=== PATIENT | male | born 1995 | race Caucasian/White ===

== ENCOUNTER 2022-07-17 08:23 | Emergency (ER) | payer OTHER ==
[2022-07-17] MEDS ORDERED: CYCLOBENZAPRINE 10 MG TABLET PO STA (09:03)
[2022-07-17] MEDS ORDERED: IBUPROFEN 800 MG TABLET PO STA (09:03)
[2022-07-17] MEDS ORDERED: HYDROcod/ACETAM 5/325 MG TABLET PO STA (09:03)
--- NOTE | 2022-07-17 09:13 | ED Physician Documentation ---
PD HPI BACK PAIN - Stated complaint Stated Complaint: BACK PX - Chief complaint Chief Complaint: Back Pain - History obtained from History obtained from: Patient, Family - History of Present Illness Timing - onset: How many days ago (several) Pain level max: 8 Pain level now: 8 Location: Lower, Right, Left Quality: Pain, Spasm, Similar to prior episodes Associated symptoms: No: Fever, Weakness, Numbness, Incontinent of urine, Unable to urinate, Hematuria, Incontinent of stool, Other Improves with: Rest Worsened by: Movement Contributing factors: No: Lifting, Twisting, Trauma, Anticoagulated, Cancer, IVDA - Additional information Additional information: Patient is a 26-year-old male who presents to the emergency department with several days of ongoing low back pain. Does not describe any specific injuries. Worse with movement, better with rest. No loss of bowel or bladder control. No IV drug use. No fevers. No chills. He states that he has a history of "bulging disks". Pain is nonradiating. No relief with Tylenol Review of Systems Constitutional: denies: Fever, Chills GI: denies: Vomiting, Diarrhea Skin: denies: Rash Musculoskeletal: denies: Neck pain Neurologic: denies: Headache PD PAST MEDICAL HISTORY - Past Medical History Past Medical History: Yes Cardiovascular: None Respiratory: None Neuro: None Endocrine/Autoimmune: None GI: None : None HEENT: None Psych: None Musculoskeletal: Chronic back pain Derm: None - Past Surgical History Past Surgical History: Yes HEENT: Other - Present Medications Home Medications: Ambulatory Orders Medication Instructions Recorded Confirmed Cyclobenzaprine [Flexeril] 10 mg PO TID PRN #20 tablet 07/17/22 HYDROcod/ACETAM 5/325 [Greenwood 5/325] 1 - 2 ea PO Q6H PRN #14 tablet 07/17/22 Ibuprofen [Motrin] 800 mg PO Q8H PRN #30 tablet 07/17/22 - Allergies Allergies/Adverse Reactions: Allergies Allergy/AdvReac Type Severity Reaction Status Date / Time No Known Drug Allergies Allergy Verified 07/17/22 08:34 - Social History Does the pt smoke?: No Smoking Status: Never smoker Does the pt drink ETOH?: Yes Does the pt have substance abuse?: No - Immunizations Immunizations are current?: Yes PD ED PE NORMAL - Vitals Vital signs reviewed: Yes - General General: Alert and oriented X 3, No acute distress - HEENT HEENT: PERRL, Moist mucous membranes - Neck Neck: Supple, no meningeal sign - Cardiac Cardiac: RRR, Strong equal pulses - Respiratory Respiratory: No respiratory distress, Clear bilaterally - Abdomen Abdomen: Soft, Non tender, Non distended - Back Back: No spinal TTP (No midline tenderness to palpation or percussion. No step- off or deformity.) - Derm Derm: Warm and dry - Extremities Extremities: Normal ROM s pain, No calf tenderness / cord - Neuro Neuro: Alert and oriented X 3, No motor deficit, No sensory deficit, Other (Normal bilateral lower extremity patellar and ankle jerk reflexes. Normal great toe extension bilaterally. no saddle anesthesia) - Psych Psych: Normal mood, Normal affect Results - Vitals Vitals: Vital Signs - 24 hr 07/17/22 07/17/22 08:31 09:21 Temperature 36.7 C Heart Rate 88 82 Respiratory 15 16 Rate Blood Pressure 139/81 H 134/78 H O2 Saturation 99 99 Oxygen O2 Source Room air PD Medical Decision Making - ED course Complexity details: considered differential (No cauda equina, no spinal epidural abscess, no fracture, no aortic dissection or evidence of aneursym rupture), d/w patient ED course: Patient with acute on chronic back pain. No evidence of cauda equina, epidural abscess. We will place on pain medications, muscle relaxants. We will have him follow-up with his doctor for further care. No indication for emergent neuroimaging. No focal neurological deficits. Patient counseled regarding signs and symptoms for which I believe and urgent re-evaluation would be necessary. Patient with good understanding of and agreement to plan and is comfortable going home at this time This document was made in part using voice recognition software. While efforts are made to proofread this document, sound alike and grammatical errors may occur. Departure - Departure Disposition: 01 Home, Self Care Clinical Impression: Back pain Qualifiers: Back pain location: low back pain Chronicity: acute Back pain laterality: bilateral Sciatica presence: without sciatica Qualified Code(s): M54.50 - Low back pain, unspecified Condition: Good Instructions: ED Low Back Pain Injury Follow-Up: your,doctor in 1 week [Other] Prescriptions: Cyclobenzaprine [Flexeril] 10 mg PO TID PRN #20 tablet PRN Reason: Spasms Ibuprofen [Motrin] 800 mg PO Q8H PRN #30 tablet PRN Reason: PAIN &/OR FEVER HYDROcod/ACETAM 5/325 [[place]wood 5/325] 1 - 2 ea PO Q6H PRN #14 tablet PRN Reason: Pain Comments: Please follow-up with your doctor for further care. Return if you worsen. Your prescriptions were sent to [facility] in [place]. Please continue to gently s tretch your back at home. I am prescribing a short course of narcotic pain medication for you. These are potentially dangerous and addictive medications that should be used carefully. These medications may constipate you. Take an [id number] stool softener (docusate) twice daily with plenty of water while taking these medications. If you go 24 hours without a bowel movement, take [id number] miralax, per package instructions. Do not drink or drive while taking these medications. If you received narcotic or sedating medications while in the emergency department, do not drive for 24 hours. Store this medication in a safe, secure place and out of reach of children. It is a violation of federal law to give or sell this medication to another person or to use in a manner other than prescribed. The ED will not refill narcotic prescriptions, including prescriptions lost or stolen. To dispose of unwanted medications: 1. [facility] at [address] in [place] has a medication drop box. They accept prescription medications (in pill form) Wednesday through Wednesday 9:00 a.m. to 5:00 p.m. 2. [facility], [place] [employer] accepts prescription medications (in pill form only) for disposal year round. Call for more information. 3. Contact the [facility] for the next [facility] sponsored prescription drug collection event. , [phone], or [phone]; Forms: Activity restrictions Discharge Date/Time: 07/17/22 09:23
[2022-07-17 09:23] VITALS: BP 134/78
== END 2022-07-17 09:23 | disposition home or self-care (01) ==
LOC: ED 08:23
DX: M54.50 Low back pain, unspecified (principal)
CPT/HCPCS: 99282; 99283; A9270

== ENCOUNTER 2023-05-05 10:12 | Outpatient (CLI) | payer OTHER ==
[2023-05-05 10:29] LABS: BASOPHILS # (AUTO) 0.1 10^3/uL (0.0-0.1); BASOPHILS % (AUTO) 1.1 %; EOSINOPHILS # (AUTO) 0.3 10^3/uL (0.0-0.7); EOSINOPHILS % (AUTO) 3.2 %; HCT - HEMATOCRIT 42.8 % (42.0-52.0); HGB - HEMOGLOBIN 14.5 g/dL (14.0-18.0); LYMPHOCYTES # (AUTO) 3.2 10^3/uL (1.5-3.5); LYMPHOCYTES % (AUTO) 39.9 %; MEAN CORPUSCULAR HEMOGLOBIN 29.3 pg (27.0-31.0); MEAN CORPUSCULAR HGB CONC 33.9 g/dL (32.0-36.0); MEAN CORPUSCULAR VOLUME 86.5 fL (80.0-94.0); MEAN PLATELET VOLUME 9.8 fL (7.4-11.4); MONOCYTES # (AUTO) 0.7 10^3/uL (0.0-1.0); MONOCYTES % (AUTO) 8.2 %; NEUTROPHILS # (AUTO) 3.8 10^3/uL (1.5-6.6); NEUTROPHILS % (AUTO) 47.4 %; PLT - PLATELET COUNT 312 10^3/uL (130-450); RED BLOOD COUNT 4.95 10^6/uL (4.70-6.10); RED CELL DISTRIBUTION WIDTH 12.7 % (12.0-15.0); WHITE BLOOD COUNT 8.1 x10^3/uL (4.8-10.8)
[2023-05-05 10:47] LABS: ALBUMIN 4.8 g/dL (3.2-5.5); ALBUMIN/GLOBULIN RATIO 1.4 (1.0-2.2); BILIRUBIN,TOTAL 0.6 mg/dL (0.2-1.0); CREATININE 1.2 mg/dL (0.6-1.3); POTASSIUM 4.3 mmol/L (3.5-4.5); TOTAL PROTEIN 8.2 g/dL (6.4-8.9)
[2023-05-05 11:00] LABS: THYROID STIMULATING HORMONE 3.28 uIU/mL (0.34-5.60)
== END 2023-05-05 10:13 | disposition home or self-care (01) ==
LOC: LAB 10:12
PROVIDERS: ATTEND Physician Assistant
DX: Z13.9 Encounter for screening, unspecified (principal); Z13.29 Encounter for screening for other suspected endocrine disorder
CPT/HCPCS: 36415; 80053; 84443; 85025

== ENCOUNTER 2023-06-07 10:13 | Day surgery (SDC) | payer OTHER ==
[2023-06-07] MEDS ORDERED: LACTATED RINGERS 1,000 ML IV ONE (10:35)
[2023-06-07 10:44] VITALS: O2SAT 96
--- NOTE | 2023-06-07 12:02 | ANESTHESIA ---
Pre-Anesthesia VS, & Labs - Diagnosis elective sterilization - Procedure B vasectomy Vital Signs: Temp Pulse Resp BP Pulse Ox O2 Flow Rate 36.1 C L 79 16 127/90 H 96 0 06/07/23 10:36 06/07/23 10:36 06/07/23 10:36 06/07/23 10:36 06/07/23 10:36 06/07/23 10:36 Height: 5 ft 9 in Weight (kg): 127 kg Body Mass Index: 41.3 BMI Classification: Morbidly Obese - NPO >8 hours - Lab Results Lab results reviewed: Yes Home Medications and Allergies Home Medications: Ambulatory Orders No Known Home Medications 05/27/23 No Known Home Medications 05/27/23 Allergies/Adverse Reactions: Allergies Allergy/AdvReac Type Severity Reaction Status Date / Time No Known Drug Allergies Allergy Verified 07/17/22 08:34 Anes History & Medical History - Anesthetic History Anesthesia Complications: reports: No previous complications Family history of Anesthesia Complications: Denies Family history of Malignant Hyperthermia: Denies - Medical History Cardiovascular: reports: None Pulmonary: reports: None Gastrointestinal: reports: None Urinary: reports: None Neuro: reports: None Musculoskeletal: reports: Osteoarthritis, Chronic back pain Endocrine/Autoimmune: reports: None Skin: reports: None Smoking Status: Never smoker History of Cancer?: No - Surgical History Eyes Ears Nose Throat (EENT): reports: Other Exam General: Alert, Oriented x3, Cooperative Dental: WNL Mouth Openin Fingerbreadth Neck Mobility: Normal Mallampati classification: II Thyromental Distance: 4-6 cm Respiratory: Lungs clear, Normal breath sounds, No respiratory distress Cardiovascular: Regular rate Neurological: Normal speech Mental/Cognitive Status: Alert/Oriented X3, Normal for patient Cognitive Status: Within normal limits Plan Anesthesia Type: General Consent for Procedure(s) Verified and Reviewed: Yes Code Status: Attempt Resuscitation ASA classification: 2-Mild systemic disease Is this case an emergency?: No
--- NOTE | 2023-06-07 12:59 | Discharge Plan ---
Discharge Plan Problem Reviewed?: Yes Disposition: 01 Home, Self Care Condition: Good Activity Restrictions: Additional Comments (as instructed) Shower Restrictions: No Driving Restrictions: No Instruction Topics: Vasectomy No Scalpel No Smoking: If you smoke, Please STOP! Call for help.
--- NOTE | 2023-06-07 13:00 | OPERATIVE REPORT ---
Operative Report - General Procedure Date: 06/07/23 Planned Procedure: Bilateral Vasectomy Pre-Op Diagnosis: Elective sterilization Procedure Performed: Bilateral no scalpel vasectomy Post Op Diagnosis: Elective sterilization - Procedure Note Primary Surgeon: Navneet Anesthesia Provider: VICTOR MANUEL Rice Anesthesia Technique: MAC Estimated Blood Loss (mL): 0 Findings: normal vasectomy Complications: none - Other Other Information/Narrative: After informed consent was obtained the patient was brought to the OR and laid in the supine position. At that point the patient was anesthetized per anesthesia protocols. He was prepped and draped in the usual sterile fashion. A formal timeout was performed reconfirming the patient, procedure and laterality. The vas deferens on the right side was identified and grasped between fingers. 1% lidocaine was used as a local instilled into the skin. Using a sharp dissecting mosquito the skin and dartos were gently split. The vas was grasped using a vas clamp. The vas sheath was then incised and the vas deferens was identified and pulled up. It was then clamped on both sides and using electrocautery, a 1 cm portion was removed to the ends were cauterized. The ends were then suture-ligated using 3-0 chromic suture. There was excellent hemostasis. An interposition stitch was used to separate the 2 ends and the fascia. The skin was closed using 3-0 chromic suture. An identical procedure was performed on the left side. Band-Aids were placed. All surgical counts were correct. This concluded the procedure. The patient tolerated the procedure well was brought to PACU without further incident.
[2023-06-07] MEDS ORDERED: BUPIVACAINE 0.25% PF 10 ML VIAL SUBQ ONE ×2 (13:08)
[2023-06-07] MEDS ORDERED: LACTATED RINGERS 300 ML IV ONE ×2 (13:24)
--- NOTE | 2023-06-07 13:34 | ANESTHESIA POST OP EVALUATION ---
Anesthesia Post Eval - Post Anesthesia Eval Vitals: Last Vital Signs Temp 36.5 C 06/07/23 13:27 Pulse 81 06/07/23 13:27 Resp 16 06/07/23 13:27 BP 122/58 L 06/07/23 13:27 Pulse Ox 96 06/07/23 13:27 O2 Flow Rate 0 06/07/23 10:36 CV Function Including HR & BP: Stable Pain Control: Satisfactory Nausea & Vomiting: Negative Mental Status: Baseline Respiratory Status: Airway Patent Hydration Status: Satisfactory Anesthesia Complications: None
[2023-06-07 13:40] VITALS: BP 119/55
== END 2023-06-07 10:14 | disposition home or self-care (01) ==
LOC: OR 10:13
PROVIDERS: ATTEND Urology
DX: Z30.2 Encounter for sterilization (principal); E66.01 Morbid (severe) obesity due to excess calories; Z68.41 Body mass index [BMI] 40.0-44.9, adult